=== PATIENT | male | born 1985 | race Caucasian/White ===

== ENCOUNTER 2018-08-30 00:09 | Emergency (ER) | payer BC ==
[~2018-08-30] VITALS: Ht 193 cm; Wt 102.0 kg
[~2018-08-30 00:09] MED LIST: ACETAMINOPHEN-1 EAC1 PO; CYCLOBENZAPRINE5 MG PO; IBUPROFEN 800800 M1 PO; NORCO 5-325 TA1 EACH PO; ROBAXIN 750 MG750 M1 PO; TORADOL 10 MG T10 MG PO
[2018-08-30 00:46] LABS: ABSOLUTE BASOPHILS 0.1 thou/uL (0.0-0.2); ABSOLUTE EOSINOPHILS 0.1 thou/uL (0.0-0.7); ABSOLUTE LYMPHOCYTES 1.5 thou/uL (0.8-5.3); ABSOLUTE MONOCYTES 0.7 thou/uL (0.0-1.2); BASOPHILS 0.7 %; EOSINOPHILS 1.4 %; HEMATOCRIT 39.7 % (42.0-52.0); HEMOGLOBIN 13.7 gm/dL (14.0-18.0); LYMPHOCYTES 17.9 %; MCH 32.1 pg (26.0-34.0); MCHC 34.6 g/dL (28.0-37.0); MCV 92.8 fL (80.0-100.0); MONOCYTES 7.8 %; MPV 7.3 fl. (7.2-11.1); NUCLEATED RBCS 0 /100WBC; PLATELET COUNT* 207 thou/uL (150-400); POLYS 72.2 %; RBC 4.28 mil/uL (4.50-6.00); RDW-CV 12.5 % (10.5-14.5); WBC 8.4 thou/uL (4.0-11.0)
[2018-08-30 00:51] LABS: ANION GAP 5 mmol/L (7-16); BUN 16 mg/dL (7-18); CALCIUM 9.3 mg/dL (8.5-10.1); CHLORIDE 102 mmol/L (98-107); CO2 31 mmol/L (21-32); CREATININE 1.1 mg/dL (0.6-1.3); GLUCOSE 91 mg/dL (70-99); SODIUM 138 mmol/L (136-145)
[2018-08-30 00:58] LABS: ALBUMIN 3.9 g/dL (3.4-5.0); ALKALINE PHOSPHATASE 63 U/L (46-116); LIPASE 121 U/L (73-393); MAGNESIUM 2.1 mg/dL (1.8-2.4); SGOT 31 U/L (15-37); SGPT 32 U/L (30-65); TOTAL BILIRUBIN 0.4 mg/dL (<0.1-1.0); TOTAL PROTEIN 7.5 g/dL (6.4-8.2); TROPONIN-I LEVEL <0.06 ng/mL (<0.06)
[2018-08-30] MEDS ORDERED: FLEXERIL PO (01:15)
[2018-08-30] MEDS ORDERED: HYDROCODONE-AP1 EAC6 PO (01:15)
[2018-08-30 02:33] VITALS: BP 113/63
--- NOTE | 2018-08-30 08:39 | EKG ---
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
== END 2018-08-30 02:34 | disposition home or self-care (01) ==
LOC: M.ERS 00:09
PROVIDERS: Emergency Medicine Emergency Medical Services
DX: R07.89 Other chest pain (principal); Z87.891 Personal history of nicotine dependence; Z90.49 Acquired absence of other specified parts of digestive tract

== ENCOUNTER 2018-09-01 19:24 | Inpatient (IN) | payer BC ==
[~2018-09-01] VITALS: Ht 193 cm; Wt 101.6 kg
[~2018-09-01 19:24] MED LIST changes: +FLEXERIL PO; +HYDROCODONE-AP1 EAC6 PO
[2018-09-01 19:35] VITALS: BP 125/83
[2018-09-01 20:20] LABS: HEMATOCRIT 43.2 % (42.0-52.0); HEMOGLOBIN 14.7 gm/dL (14.0-18.0); MCH 31.7 pg (26.0-34.0); MCHC 34.1 g/dL (28.0-37.0); MPV 7.3 fl. (7.2-11.1); NUCLEATED RBCS 0 /100WBC; PLATELET COUNT* 218 thou/uL (150-400); RBC 4.65 mil/uL (4.50-6.00); RDW-CV 12.5 % (10.5-14.5); WBC 13.5 thou/uL (4.0-11.0)
[2018-09-01 20:29] LABS: CALCIUM 9.2 mg/dL (8.5-10.1); POTASSIUM 3.9 mmol/L (3.5-5.1)
[2018-09-01 20:34] LABS: ALBUMIN 3.7 g/dL (3.4-5.0); TOTAL BILIRUBIN 0.7 mg/dL (<0.1-1.0)
[2018-09-01 20:45] LABS: PLATELET ESTIMATE ADEQUATE
[2018-09-01 21:22] VITALS: BP 135/71
[2018-09-01 21:29] LABS: ESR (SEDRATE) 30 mm/hr (0-15)
[2018-09-01 21:33] VITALS: BP 156/89
[2018-09-01 21:33] LABS: ABSOLUTE LYMPHOCYTES 1.4 thou/uL (0.8-5.3); ABSOLUTE NEUTROPHILS 11.3 thou/uL (1.6-8.1)
[2018-09-01 21:35] LABS: ABSOLUTE MONOCYTES 0.8 thou/uL (0.0-1.2)
--- NOTE | 2018-09-01 22:05 | NUR ---
PT ADMITTED TO UNIT WITH CELLULITIS AND LYMPHADENOPATHY. PT IS ON ROOM AIR. PULSES 2+ IN ALL EXTREMITIES. REDNESS TO LT BICEP, PICTURE TAKEN AND IN CHART. PT C/O PAIN, MEDS GIVEN IN ER. PT EDUCATED ON USING CALL LIGHT WHEN NEEDING MORE PAIN MEDS OR IF PAIN INCREASES. TEMP TAKEN, 100.3, TYLWNOL ORDERED AND GIVEN. PT HAS RT AC IV WITH NS AT 100 AND BOLUS DOSE OF IV VANC RUNNING. PT IS UP AD TAYO. NPO AFTER MIDNIGHT. ID CONSULT MADE. FALL RISK PRECAUTIONS IN PLACE. WILL CONTINUE TO MONITOR.
[2018-09-02] VITALS: BP 113/63
--- NOTE | 2018-09-02 04:19 | NUR ---
PT REMAINED ALERT AND ORIENTED THIS SHIFT. PT TEMP WAS 100.3, TYLENOL GIVEN. TEMP RETAKEN 6 HOURS LATER 99.3, TYLENOL GIVEN AGAIN ORDERED. PT CURRENTLY NPO. PT DENIED ANY PAIN UNLESS MOVING ARM. PT EDUCATED ON USING CALL LIGHT WHEN NEEDING PAIN MEDS. PT SLEPT THROUGH THE NIGHT. FALL RISK PRECAUTIONS IN PLACE. HOURLY ROUNDING COMPLETED. WILL CONTINUE TO MONITOR.
[2018-09-02 08:45] VITALS: BP 118/64
[2018-09-02 16:00] VITALS: BP 128/78
--- NOTE | 2018-09-02 16:18 | NUR ---
PATIENT REMAINS ALERT AND ORIENTED. LEFT ARM PAINFUL TO TOUCH. DENIES NEED FOR PAIN MEDS. SHOWERED THIS AM. IVF AND IV ABX INFUSED ORDERED. UP AD TAYO. TOLERATING DIET. DENIES NEEDS. CALL LIGHT WITHIN REACH. WILL CONTINUE TO MONITOR.
[2018-09-02 19:50] VITALS: BP 139/80
--- NOTE | 2018-09-02 22:30 | NUR ---
CALLED TO PATIENT ROOM WITH PATIENT STATING THE SWELLING AND PAIN LEFT ARM HAS INCREASED AND IS CAUSING SIGNIFICANT PAIN THAT IS AGAIN RADIATING TO HIS CHEST. MESUREMENT OF ARM TAKEN AT 41.5 CM. DO NOTE REDDNESS WARMTH EDEMA OF ARM. MESSAGE TO PHYSICIAN, AWAITING CALL BACK.
[2018-09-02 23:11] VITALS: BP 134/76
--- NOTE | 2018-09-02 23:19 | NUR ---
RETURN CALL RECEIVED FROM DR PRUITT WITH NEW ORDERS. PHYSICIAN MADE AWARE THAT PATIENT IS MAKING A DECISION REGARDING LEAVING AMA. PATIENT CARE TO Ani RN. THIS RN HAS EXPLAINED NEW ORDERS TO PATIENT. PATIENT IS WAITING FOR HIS SISTER WHO IS A EMS BEFORE MAKING A FINAL DECISION TO LEAVE. CONTINUE TO PROVIDE SUPPORT AND CARE ORDERED.
--- NOTE | 2018-09-02 23:54 | NUR ---
RECIEVED REPORT AND ASSUMED CARE OF PT AT 2300. PT EXTREMELY ANXIOUS STATING HE NEEDED TO LEAVE AND GET BETTER TREATMENT FOR INFECTION. PT'S RIGHT AXILLA WARM HARD AND PINK. VITAL SIGNS OBTAINED. INFORMED PT THAT PHYSICAN HAD BEEN CONTACTED REGARDING HIS CONCERNS AND STAT ORDERS WERE IN PROGRESS. INFORMED PT THAT STAT ULTRASOUND WAS ORDERED TO DETERMINE IF AREA WAS AN ABCESS. INFORMED PT THAT A SURGICAL CONSULT WOULD BE MADE IF ABCESS WAS CONFIRMED BY ULTRASOUND. INFORMED PT THAT HE WAS RECIEVING ANTIBIOTICS ORDERED BY INFECTIOUS DISEASE PHYSICAN. PT'S SITER ARRIVED AT 2330. SISTER STATES SHE IS EMS PERSON. INFORMED SISTER OF PT'S [facility]. PT SIGNED AMA FORMS. SALINE LOCK DISCONTINUED AT 2340. PT LEFT FACILITY AMA AT 2345 PER PRIVATE VEHICLE DRIVEN BY SISTER.
--- NOTE | 2018-09-03 07:56 | CON ---
[address] [address] CONSULTATION Name: KATHERINE CARMEN Room: [address] IN ..#: [id number] Admission: 09/01/18 Attend Phys: Benjamin Metz MD Discharge: 09/02/18 Date of : 81 Report #: [id number] THIS REPORT FOR: //name// CC: Benjamin Metz [facility] physician/PCP DATE OF SERVICE: 09/02/2018 INFECTIOUS DISEASE CONSULTATION ATTENDING PHYSICIAN: Dr. Metz. REASON FOR EVALUATION: Left upper extremity skin and soft tissue infection with lymphadenitis involving the left axilla. HISTORY OF PRESENT ILLNESS: Chart reviewed, patient examined. 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 This is over the fifth metatarsophalangeal site. It did bleed, did clean it with water. He subsequently developed increasing pain within 2-3 days post injury and it worsened. He describes red streaking up his arm. He developed, subsequent to that, chest related pain including his left axilla. He was evaluated, excluded any cardiac related signs or symptoms. As noted on CT, he had left axillary adenopathy, initially was sent home, but called back and was readmitted due to felt to be aggressive skin and soft tissue infection. He was placed empirically on vancomycin. Overall, he has improved. Denies significant pulmonary or gastrointestinal related complaints. ALLERGIES: None known. CURRENT MEDICATIONS: Include vancomycin, acetaminophen, Ketorolac, ondansetron as needed. PAST MEDICAL HISTORY: Otherwise, unremarkable. He did have previous history of left axillary lymph node resection due to persistent lymphadenopathy as a child. Apparently, this was deemed benign. Previous appendectomy, hernia repair. SOCIAL HISTORY: Former smoker. Occasional ethanol although infrequent. No illicit drug use. FAMILY HISTORY: Noncontributory. REVIEW OF SYSTEMS: Ten point review of systems otherwise unremarkable with the exception noted above in [place] [address] CONSULTATION Name: KATHERINE CARMEN Room: [address]#: [id number] Admission: 09/01/18 Attend Phys: Benjamin Metz MD Discharge: 09/02/18 Date of : 81 Report #: [id number] PHYSICAL EXAMINATION: GENERAL: He is pleasant, alert, cooperative, in mild distress at this point, appears to be well nourished. VITAL SIGNS: T-max 100.3, more recently 98.0; pulse 91; respirations 18; blood pressure 113/63. SKIN: Warm, dry. HEENT: Normocephalic. Extraocular muscles intact. NECK: Supple. LUNGS: Clear to auscultation bilaterally. HEART: Regular rate and rhythm without murmur. Chest wall is not tender at this point. ABDOMEN: Soft, nontender. There is no organomegaly. EXTREMITIES: Distal lower extremities were unremarkable. Left upper extremity proximally has an [id number] type eruption. There is some tenderness to palpation, not clear, and I can palpate the enlarged lymph nodes at this point. The laceration on his hand appears to be in a healing phase. There is no evidence of subcutaneous fluid to suggest an abscess at the site of tenosynovitis. I do not appreciate any fluctuance in the axilla either. GENITOURINARY: Deferred. RECTAL: Deferred. LABORATORY DATA: Blood cultures are sterile thus far. CBC: White count 13.5, H and H 14.7 and 43.2, platelets 218, sed rate of 30. Lactic acid is 0.9 on admission. CRP of 153.7. Electrolytes: Sodium 134, potassium 3.9, chloride 97, bicarbonate is 29, BUN and creatinine 13 and 1.0. LFTs unremarkable. Albumin of 3.7, total protein of 8.0. Estimated GFR of 85. CTA, chest PE protocol, nothing for PE or dissection, demonstrated enlarged nodes with edema in the left axillary region. Chest x-ray, no acute process. ASSESSMENT: Left axillary skin and soft tissue infection. At this point, I do not think there is any evidence of abscess. He has some adenopathy. I think it is probably related to exposure of dorsal aspect of the hand at this point. We will continue empiric antimicrobial therapy, presume staph/strep/skin etiology. This is clinically improved over the brief period on the antibiotics, we will encourage elevation. At this point, I do not think there is anything surgically to drain. Thank you, we will follow. <ELECTRONICALLY SIGNED> By: Horacio Montes MD 09/03/18 0756 0912 [id number] Montes MD /nt
== END 2018-09-02 23:40 | disposition left against medical advice (07) | DRG 815 ==
LOC: M.ERS 19:24 → M.ORTHSURG 20:47 → M.TBA-ER 20:47 → M.ORTHSURG 21:05
PROVIDERS: Nurse Practitioner Family; ADMIT Internal Medicine
DX: I88.9 Nonspecific lymphadenitis, unspecified (principal); L03.112 Cellulitis of left axilla; Z53.21 Procedure and treatment not carried out due to patient leaving prior to being seen by health care provider; Z79.1 Long term (current) use of non-steroidal anti-inflammatories (NSAID); Z79.899 Other long term (current) drug therapy; Z90.49 Acquired absence of other specified parts of digestive tract; Z87.891 Personal history of nicotine dependence